=== PATIENT | female | born 1975 | race Hispanic/Latino ===

== ENCOUNTER 2018-08-24 07:56 | Emergency (ER) | payer MEDICAID, SELFPAY ==
[2018-08-24 08:35] LABS: #Basophils 0.1 thou/uL (0.0-0.2); #Eosinphils 0.2 thou/uL (0.0-0.7); #Lymphocytes 1.8 thou/uL (1.20-3.40); #Monocytes 0.4 thou/uL (0.11-0.59); #Neutrophils 3.9 thou/uL (1.40-6.50); %Basophils 0.8 % (0.0-1.0); %Eosinophils 3.2 % (0.0-10.0); %Lymphocytes 28.6 % (21.0-51.0); %Monocytes 5.9 % (0.0-10.0); %Neutrophils 61.5 % (42.0-75.0); Hemoglobin 12.4 g/dL (12.0-16.0); Mean Corpuscular HGB CONC 34.7 g/dL (32.0-36.0); Mean Corpuscular Volume 86.5 fL (78.0-98.0); Mean Platelet Volume 8.3 fL (7.4-10.4); Platelet Count 245 thou/uL (130-400); RBC Distribution Width 15.1 % (11.5-14.5); Red Blood Cell (RBC) Count 4.14 mill/uL (4.20-5.40); White Blood Cell (WBC) Count 6.4 thou/uL (4.8-10.8)
[2018-08-24 08:58] LABS: Bilirubin Negative (Negative); Blood, Urine Large (Negative); Clarity CLEAR (Clear); Glucose, Urine (Dipstick) Negative (Negative); Leukocyte Negative (Negative); Nitrite Negative (Negative); Protein, Urine (Dipstick) Trace mg/dL (Neg-Trace); Specific Gravity, Urine 1.009 (1.002-1.036); Urobilinogen 0.2 mg/dL (0.2-1.0); pH, Urine 5.5 (5.0-9.0)
[2018-08-24 09:00] LABS: Bacteria/HPF None Seen HPF (None Seen); Hyaline Casts/LPF 0-3 HYALINE CAST LPF (0-3 Hyaline); Pathc Cast-AUWi Flag 0.95 (0-2.49); RBC/HPF GREATER THAN 50-TNTC HPF (0-3); Squamous Epithelial 0-3 HPF (0-3); WBC/HPF 0-3 HPF (0-3)
--- NOTE | 2018-08-24 10:42 | ULT ---
PELVIC ULTRASOUND WITH GATES SCALE AND COLOR FLOW AND SPECTRAL DOPPLER: HISTORY: Pelvic pain. FINDINGS: The uterus measures 17.7 x 7.2 x 10.6 cm. A single live intrauterine gestation is seen with measures corresponding to an estimated gestational age of 11 weeks 0 days and KYM at 03/15/2019. The crown-r ump length measures 4.13 cm. The heart rate measures 171 b.p.m. A small subchorionic bleed is seen. The right ovary is not visualized. The left ovary is unremarkable and demonstrates flow. No free fluid is seen. IMPRESSION: 1. Single live intrauterine of 11 weeks estimated gestational age and estimated date of de livery at 03/15/2019. 2. Small subchorionic bleed. POS: [facility]
[2018-08-25 20:47] LABS: Chlamydia by PCR Not Detected (NotDetected); GC by PCR Not Detected (NotDetected)
== END 2018-08-24 10:58 | disposition home or self-care (01) ==
LOC: ERS 07:56
DX: O09.521 Supervision of elderly multigravida, first trimester (principal); O20.0 Threatened abortion; Z3A.11 11 weeks gestation of pregnancy
CPT/HCPCS: 36415; 76856; 81003; 81015; 84702; 85025; 86900; 86901; 87480; 87491; 87510; 87591; 87660; 93976; 99284

== ENCOUNTER 2019-02-07 16:04 | Day surgery (SDC) | payer SELFPAY ==
[2019-02-07 16:48] VITALS: BP 137/63; TEMP 98.3; BMI 41.0
--- NOTE | 2019-02-07 17:26 | PDOC.FPROB ---
FMR OB H&P: HPI - History of Present Illness Chief Complaint: Hematuria History of Present Illness: Pt is a 44 yo @ 35.2 wks by LMP who presents with diet controlled gestational DM and hypothyroidism who presents with hematuria. She has constipation. She had a small bowel movement this morning that was painful. She went to the bathroom around 3pm and had bright red hematuria. She went to the bathroom again and she had light pink urine. She denies any abdominal pain, loss of fluid, contractions, rash, vision changes. She endorses constipation. Primary Care Physician: JENNIFFER- [place] Car FMR OB H&P: Current - Care : 5 Para: 1121 Gestational age: 35.2 weeks by LMP (06/09/18) Due date: 03/16/19 Dating Criteria: LMP - OB Labs Blood type: O RH: positive Antibody Screen: negative HIV: negative RPR: negative HepBsAg: negative Rubella: non-immune Gonorrhea: negative Chlamydia: negative 3 hour GTT: 97, 222, 213, 138 A1c: 5.5% H&H: 12.2/35.3% Platelets: 269 FMR OB H&P: History - Past Medical History PMH: Subclinical Hypothyroidism - OB History OB History: Gestational DM - Surgical History Sx History: 1 @ 37 wks for IUGR - Social History Social History: Lives at home with son and . No alcohol, tobacco, or recreational drugs. - Family History Family History: Mom: DM ( at 57 from complications) FMR OB H&P: Medications - Current Home Medications: Medication Instructions Recorded Confirmed Type Aspirin Chewable 81 mg PO DAILY 02/07/19 02/07/19 History Pnv No.95/Ferrous Fum/Folic AC 1 tab DAILY 02/07/19 02/07/19 History [ Vitamin Tablet] Allergies/Adverse Reactions: Allergies Allergy/AdvReac Type Severity Reaction Status Date / Time No Known Allergies Allergy Verified 02/07/19 16:38 FMR OB H&P: ROS - Review of Systems General: denies: fever/chills Eyes: denies: vision changes ENT: denies: nasal congestion, rhinorrhea, sore throat Cardiovascular: denies: chest pain, edema Respiratory: denies: cough, congestion, shortness of breath Gastrointestinal: reports: constipation. denies: abdominal pain, nausea, vomiting, diarrhea Genitourinary (Female): denies: dysuria, vaginal discharge, vaginal pain, vaginal bleeding, contractions Musculoskeletal: denies: pain, arthritis/arthralgias Neurologic: denies: numbness, weakness, headache Integumentary: denies: itching, rash Endocrine: denies: polydipsia, polyuria FMR OB H&P: Vital Signs - Maternal Vital signs: Vital Signs - First Documented Temp Pulse Resp BP 98.3 F 70 18 137/63 02/07/19 16:21 02/07/19 16:21 02/07/19 16:21 02/07/19 16:21 - Heart Tones Baseline: 150 Variability: moderate Acceleration: present Deceleration: absent Category: category 1 FMR OB H&P: Physical Exam - Physical Exam General: NAD, awake, alert and oriented HEENT: normocephalic and atraumatic, PERRLA, grossly normal hearing, oropharynx clear, good dention Neck: supple, no LAD Chest: non-tender to palpation Heart: RRR, normal S1/S2, no murmurs/rubs/gallops, pulses present, no edema General: CTAB, no respiratory distress, good air movement Abdomen: soft, gravid, non-tender, bowel sound present Musculoskeletal: pulses present Neurological: cranial nerves II through XII intact Skin: no rash Lymphatic: no unusual bruising or bleeding Psychiatric: normal mood and affect FMR OB H&P: A/P - Problem List (1) Hematuria Current Visit: Yes Status: Acute Code(s): R31.9 - HEMATURIA, UNSPECIFIED (2) Constipation Current Visit: Yes Status: Acute Code(s): K59.00 - CONSTIPATION, UNSPECIFIED (3) Gestational diabetes Current Visit: Yes Status: Acute Code(s): O24.419 - GESTATIONAL DIABETES MELLITUS IN , UNSP CONTROL (4) Subclinical hypothyroidism Current Visit: Yes Status: Acute Code(s): E03.9 - HYPOTHYROIDISM, UNSPECIFIED Disposition: Pt is a 44 yo @ 35.2 wks by LMP who presents with diet controlled gestational DM and hypothyroidism who presents with hematuria. 1. Hematuria Started 2 hours ago * Will do a pelvic exam * Straight Cath with UA * CBC * Most likely related to constipation 2. Constipation Will consider starting Ducolax &/or Miralax * Will do rectal to check for hemorrhoids, which is likely cause of bleeding 3. Gestational DM White Classification: A1 * Diet Controlled 4. Subclinical Hypothyroidism TSH checked on 11/21 wnl * No symptoms Discussion: Date/Time: 02/07/19 615 This H&P was discussed with [] and [] who agree with the above documentation and plan.
[2019-02-07] MEDS ORDERED: hydrALAZINE 20 MG/ML VIAL SLOW IVP PRN (17:45)
--- NOTE | 2019-02-07 18:09 | PDOC.EVN ---
Event Note - Event Note Event Note: OBGYN Faculty: I am at bedside. reviewed tests ordered. Audible FM on doppler. [place] reviewed....low amplitute (external) CTX on toco...patent states not painful. CX check pending
--- NOTE | 2019-02-07 18:21 | HP ---
TIME: 1738 hours. LOCATION: Labor and Delivery in LDR 1. The patient of the residents. The patient is at 34 weeks and 5 days gestational age. CHIEF COMPLAINT: Blood during urination. HISTORY OF PRESENT ILLNESS: This is a 44-year-old, G5, P1-1-2-1 with gestational diabetes diet controlled (A1), who complains of "blood in urine." She states that she has had some constipation recently and had a recent bowel movement and then, she noticed that when she went to the restroom, she had some "bright red blood" during urination. Source is unknown though. She does not suspect that it is vaginal. She has good movement and denies a large gush of fluid per vagina. REVIEW OF SYSTEMS: Complete review of systems was checked and is otherwise negative unless specified in the HPI. PAST MEDICAL HISTORY: She has a history of hypothyroidism, but she is not currently on medications. Her last TSH was 0.492, which is normal off medication. PAST SURGICAL HISTORY: She has had a x1. ALLERGIES: NONE. SOCIAL HISTORY: Negative for alcohol, tobacco, and drug use. PHYSICAL EXAMINATION: VITAL SIGNS: She is afebrile and normotensive. Clinically, she is in no acute distress. ABDOMEN: Soft and nontender and there is no evidence of uterine hypertonus. Cervical exam is currently pending. On monitor, heart tones are in the 140s to 150s and they are reactive. On tocodynamometer, there were two contractions about every 10 to 15 minute. ASSESSMENT: This is a 44-year-old, G5, P1-1-2-1 with A1 D1, who is at 34 weeks and 5 days with likely rectal/hemorrhoidal bleed as right red blood with urination is likely not coming from the bladder. PLAN: 1. We will do a cath UA. 2. Vaginal exam to rule out vaginal source of bleeding. 3. The residents have been instructed by me to do a thorough external anal exam to make sure that there are no bleeding hemorrhoids. 4. No evidence of labor or obstetrical issue at this time. Job ID: [id number]
[2019-02-07 18:47] LABS: #Basophils 0.1 thou/uL (0.0-0.2); #Eosinphils 0.3 thou/uL (0.0-0.7); #Monocytes 0.6 thou/uL (0.11-0.59); #Neutrophils 6.2 thou/uL (1.40-6.50); %Basophils 0.7 % (0.0-1.0); %Eosinophils 3.4 % (0.0-10.0); %Lymphocytes 21.6 % (21.0-51.0); %Monocytes 6.1 % (0.0-10.0); %Neutrophils 68.3 % (42.0-75.0); Hemoglobin 12.7 g/dL (12.0-16.0); Mean Corpuscular HGB CONC 34.5 g/dL (32.0-36.0); Mean Corpuscular Volume 92.8 fL (78.0-98.0); Mean Platelet Volume 7.9 fL (7.4-10.4); Platelet Count 217 thou/uL (130-400); RBC Distribution Width 11.9 % (11.5-14.5); Red Blood Cell (RBC) Count 3.96 mill/uL (4.20-5.40); White Blood Cell (WBC) Count 9.1 thou/uL (4.8-10.8)
--- NOTE | 2019-02-07 19:03 | PRG ---
DATE OF SERVICE: 02/07/2019 TIME OF EVALUATION: Roughly 1830. LOCATION: [facility] bed 1. STERILE SPECULUM EXAM: In brief, I was asked by Dr. Ghosh who was performing a speculum exam due to a possible history of bleeding from the vagina, and I arrived 3 minutes after being called. I do not see any gross evidence of rupture. There is no gross evidence of vaginal bleeding. Cervix appears visually closed. There was a small adherent clot less than 1 cm at the external cervical os, so the bleeding may have been supracervical/maybe a small marginal placental separation, but there is no gross evidence of abruption. heart tones are reassuring. This may also explain the uterine low amplitude contractions. I do not feel at this time the patient is at any jeopardy. We will get a blood type as well just to make sure that the patient is Rh positive. I did order the urine on her and that is still pending. Job ID: [id number]
[2019-02-07 19:04] LABS: Bacteria/HPF None Seen HPF (None Seen); Bilirubin Negative (Negative); Blood, Urine Negative (Negative); Clarity Clear (Clear); Glucose, Urine (Dipstick) Normal (Negative); Leukocyte Negative Leu/uL (Negative); Nitrite Negative (Negative); Protein, Urine (Dipstick) Negative (Neg-Trace); RBC/HPF 0-3 HPF (0-3); Squamous Epithelial 0-3 HPF (0-3); Urobilinogen Normal mg/dL (Less than 2); WBC/HPF 0-3 HPF (0-3)
--- NOTE | 2019-02-07 20:41 | PDOC.EVN ---
Event Note - Event Note Event Note: S: Pt monitored on monitoring. Resolution of vaginal bleeding. No contractions. No LOF, vaginal discharge. Endorses good movement. No concerns or complaints. Eager for discharge. O: VSS. BP prior to discharge was 151/68, however pt was lying on cord and cuff. Pt immediately repositioned and repeat BP was 124/60. All BP have been WNL since triage. Vaginal exam: Cervical recheck was 0/thick/high. No return of vaginal bleeding. Initial check 0/thick/high. Speculum exam demonstrated scant cervical bleeding. Rectal exam: External, nonbleeding hemorrhoids. A/P: Pt is a 44 yo @ 35.2 wks by LMP who presents with diet controlled gestational DM and hypothyroidism who presents with vaginal bleeding 1. Vaginal bleeding, resolved - Cervical check x2 >2hours apart of 0/thick/high - Initial speculum exam demonstrated small cervical bleeding, repeat cervical check demonstrated no bleeding - Bleeding likely 2/2 cervical softening - Reactive strip, no contractions - CBC WNL, Straight cath UA clean - Not in active labor, reassuring FTH, stable for discharge. Return precautions given. F/u with PCP this week for routine care. 2. Constipation with external hemorrhoids - seen on exam - recommended PrepH as outpatient 3. Gestational DM White Classification: A1 - Diet Controlled 4. Subclinical Hypothyroidism - TSH checked on 11/21 wnl - No symptoms Dispo: Pt not in active labor. Discharge pt with labor return precautions. F/u with PCP this week for routine care.
== END 2019-02-07 20:38 | disposition home or self-care (01) ==
LOC: L&D/OP 16:04
PROVIDERS: ATTEND Student in an Organized Health Care Education/Training Program
DX: O46.93 Antepartum hemorrhage, unspecified, third trimester (principal); O99.613 Diseases of the digestive system complicating pregnancy, third trimester; K59.00 Constipation, unspecified; K64.4 Residual hemorrhoidal skin tags; O24.410 Gestational diabetes mellitus in pregnancy, diet controlled; O99.283 Endocrine, nutritional and metabolic diseases complicating pregnancy, third trimester; E03.9 Hypothyroidism, unspecified; Z79.82 Long term (current) use of aspirin; Z3A.34 34 weeks gestation of pregnancy
CPT/HCPCS: 36415; 81003; 85025; 86900; 86901

== ENCOUNTER 2019-02-08 03:16 | Inpatient (IN) | payer MEDICAID, OTHER, SELFPAY ==
--- NOTE | 2019-02-08 04:21 | PDOC.FPROB ---
FMR OB H&P: HPI - History of Present Illness Chief Complaint: Vaginal Bleeding History of Present Illness: 44yo @ 35.3 by LMP with Gestational DM - diet controlled who presents for vaginal bleeding. Was seen last night for similar sxs. At that time cervical was closed, high and thick. Had scant vaginal bleeding from cervical OS. Bleeding resolved. Contractions resolved. Reactive strip. No LOF, good movement. Was given return precautions and discharged. At 0100 pt awoke with sensation to urinate, passed 1 large clot, packed underwear with toilet paper and went back to sleep. At 0300 awoke again to find paper soaked with blood, urinated and passed multiple large clots and increased bleeding. Has associated thobbing pain with bleeding, starting at back and radiating to pelvis. Denies LOF or change in vaginal discharge. Endorses good movement. No SOB, CP, fever/chills, n/v. Contractions q5-7mins and vaginal bleeding with each contraction. - Care : 5 Para: 1121 Gestational age: 35.3 weeks by LMP (06/09/18) Due date: 03/16/19 Dating Criteria: LMP - OB Labs Blood type: O RH: positive Antibody Screen: negative HIV: negative RPR: negative HepBsAg: negative Rubella: non-immune Gonorrhea: negative Chlamydia: negative 3 hour GTT: 97, 222, 213, 138 A1c: 5.5% H&H: 12.2/35.3% Platelets: 269 Primary Care Physician: JENNIFFER Car FMR OB H&P: History - Past Medical History PMH: Subclinical Hypothyroidism - OB History OB History: Gestational DM - diet controlled. Previous deliveries. - Surgical History Sx History: 1 @ 37 wks for IUGR - Social History Social History: Lives at home with son and . No alcohol, tobacco, or recreational drugs. - Family History Family History: Mom: DM ( at 57 from complications) FMR OB H&P: Medications - Current Home Medications: Medication Instructions Recorded Confirmed Type Aspirin Chewable [Aspirin Chewable 81 mg PO DAILY 02/07/19 02/07/19 History Tablet] Pnv No.95/Ferrous Fum/Folic AC 1 tab DAILY 02/07/19 02/07/19 History [ Vitamin Tablet] Hydroxyprogesterone [Zenobia] 250 mg IM Q7D 02/08/19 02/08/19 History Allergies/Adverse Reactions: Allergies Allergy/AdvReac Type Severity Reaction Status Date / Time No Known Allergies Allergy Verified 02/08/19 04:26 FMR OB H&P: ROS - Review of Systems General: denies: fever/chills, weight/appetite/sleep changes, night sweats Eyes: denies: vision changes, double vision, scotomas ENT: denies: nasal congestion, rhinorrhea, frequent nose bleed, sore throat Cardiovascular: denies: chest pain, palpitation, edema Respiratory: denies: cough, congestion, shortness of breath Gastrointestinal: reports: cramping, constipation (chronic). denies: abdominal pain, nausea, vomiting, diarrhea Genitourinary (Female): reports: vaginal pain, vaginal bleeding, contractions. denies: incontinence, dysuria, hematuria, vaginal pressure Musculoskeletal: denies: pain, stiffness, tenderness Neurologic: denies: numbness, syncope, seizures Integumentary: denies: rash, lesions FMR OB H&P: Vital Signs - Maternal Vital signs: BP 127/57, HR 67, 98% on RA - Heart Tones Baseline: 140 Variability: moderate Acceleration: present Deceleration: absent Category: category 1 Seth Ward contractions every: 5-6 minutes FMR OB H&P: Physical Exam - Physical Exam General: NAD, awake, alert and oriented HEENT: EOMI, MMM Neck: supple, trachea midline Heart: RRR, normal S1/S2, no murmurs/rubs/gallops, pulses present, no edema General: CTAB, no respiratory distress, good air movement, no rales/rhonchi, no wheezing Abdomen: soft, gravid, non-tender, bowel sound present Neurological: no tremor, no focal deficit Lymphatic: no unusual bruising or bleeding, no purpura Psychiatric: intact recent and remote memory, good judgement and insight, normal mood and affect - Pelvic Exam Vulva: normal hair distribution Deviation from normal: bloody vaginal discharge SVE: 0/thick/high Presentation: oblique Estimated Weight: other FMR OB H&P: A/P - Problem List (1) Vaginal bleeding during Current Visit: Yes Status: Acute Code(s): O46.90 - ANTEPARTUM HEMORRHAGE, UNSPECIFIED, UNSPECIFIED TRIMESTER (2) Third trimester at less than 36 weeks Current Visit: Yes Status: Acute Code(s): Z34.93 - ENCNTR FOR SUPRVSN OF NORMAL PREG, UNSP, THIRD TRIMESTER (3) Gestational diabetes Current Visit: Yes Status: Acute Code(s): O24.419 - GESTATIONAL DIABETES MELLITUS IN , UNSP CONTROL Qualifiers: Gestational diabetes mellitus control: diet-controlled Trimester: third trimester Qualified Code(s): O24.410 - Gestational diabetes mellitus in , diet controlled Disposition: 44yo @ 35.3 by LMP with Gestational DM - diet controlled who presents for vaginal bleeding. #Vaginal bleeding during 3rd trimester - 35.3wks by LMP - suspected partial placental abruption - 2nd presentation for sxs within 24 hours - Cervical check remains 0/thick/high, similar to previous, after confirming placental location with beside US - Will give Steroids for lung protection, anticipate repeat C/S in 4 hours from dose - History of vertical incision, will plan for low transverse for improved wound healing - Will monitor closely on monitoring, currently cat 1 strip, no decels, accels, moderate variability, contractions q5-6min - Will obtain BPP and US for EFW and placental location - Type and cross for 2 units - Notified NICU of impeding deliver of - Admit to L&D #Gestational DM - Diet controlled, will monitor Code: Full Diet: NPO IVF: LR @125cc/hr VTE: SCDs PCP: DARLING Car Dispo: Admit to L&D. Administer IM steroids, monitor closely. Anticipate repeat c/s in 4 hours after steroids given. Discussion: Date/Time: 02/08/19 3836 This H&P was discussed with Dr. Dye who agree with the above documentation and plan.
[2019-02-08] MEDS ORDERED: Promethazine HCl 25 MG/ML VIAL IM PRN ×2 (04:32→09:39)
[2019-02-08] MEDS ORDERED: Ondansetron PF 4 MG/2 ML Vial IVP PRN ×2 (04:32→09:39)
[2019-02-08] MEDS ORDERED: hydrALAZINE 20 MG/ML VIAL SLOW IVP PRN ×2 (04:32→12:55)
[2019-02-08] MEDS ORDERED: Acetaminophen 500 MG TAB PO PRN (04:32)
--- NOTE | 2019-02-08 04:46 | PDOC.EVN ---
Event Note - Event Note Event Note: OBGYN Faculty interim H&P Patient seen at 0430 in Triage A See my dictation CC: persistent Vag Bleed and clot passage ED weeks 5 days HPI: Patient was seen yesterday in L&D fort same and released as she was stable and no further vag bleed. Past Surgical: CS x1 (vertical skin scar) Physical: No active VB Patient clinically stable monitors: NST reactive, ut irritability Assessment and Plan: AMA...prior CS x1. As EGA is 35 weeks and 3 days and NST reactive with no current active VB, we will order Celestone X1...and wait 4 hrs for some benefit, then proceed to repeat CS. Patient does prefer a CS after my TOLAC discussion at bedside. I feel this is reasonable due to the vag bleed/suspected marginal abruption which may make labor not tolerable. We will notify NICU Sono for EFU (bedside sono+ cephalic without previa). T&C X 2 Although she has a vertical skin incision, we will proceed with a low transverse incision on the skin for better postop healing
[2019-02-08] MEDS: Lactated Ringer's 1,000 ML IV SCH ×4 (04:49→15:33)
[2019-02-08] MEDS ORDERED: Betamet Acet/Betamet Na Ph 30 MG/5 ML VIAL IM SCH (05:00)
[2019-02-08] MEDS ORDERED: Bicitra 30 ML UDCUP PO SCH (05:00)
[2019-02-08] MEDS ORDERED: Azithromycin 500 MG in Sodium Chloride 0.9% 250 ML 250 ML IVPB SCH (05:00)
[2019-02-08] MEDS ORDERED: CEFAZOLIN 2 GM in Premix Bag 1 BAG IVPB SCH (05:00)
--- NOTE | 2019-02-08 05:10 | HP ---
LOCATION: Labor and Delivery. Gestational age is roughly 35 weeks and 3 days. This is a patient of the clinic. REASON FOR EVALUATION/CHIEF COMPLAINT: Vaginal bleeding. HISTORY OF PRESENT ILLNESS: In brief, this is a patient that I had evaluated along with the residents yesterday for an episode of vaginal bleeding. She had a workup with a negative blood clot noted at the cervical os on her 1st evaluation yesterday and she was thought to maybe have a small marginal separation, but as the baby looked well and there was no further bleeding, we sent her home. She now returns again with another episode of going to the restroom and passing clots. There was no active bleeding now, and she has had no trauma or recent sexual activity. But because of the persistent bleeding and passing of clots at home, she came in. Again, she is a 44-year-old multigravida with a previous (a vertical skin incision). Please see the full H and P by the Resident Team. I have seen and evaluated the patient at bedside. ASSESSMENT: This is a 44-year-old multigravida, with a previous who is at 35 weeks and 3 days, who was just seen less than 24 hours ago, but presents now again with persistent vaginal bleeding. There is no evidence of previa on limited bedside ultrasound. As this is her 2nd presentation and she is having some low amplitude contractions as well, I believe she is having a small placental abruption. She is nonhypertensive and does not use drugs. There has been no recent trauma. Her Rh type is positive. PLAN: 1. Because of the placental issue, I have recommended delivery. 2. She had a previous x1 and although she has been educated on a trial of labor after , she requested a repeat . 3. I have ordered Celestone as she is under 36 weeks and 6 days. 4. I have asked for the NICU team to come see her. 5. I have ordered an ultrasound for estimated weight. 6. Bedside ultrasound confirms baby is in a vertex presentation and no previa. 7. I will do a Type and Cross. 8. Rh positive. 9. I will wait about 4 hours after the steroid and we will proceed with a repeat this morning. Although, she has a vertical skin incision, it is fine to do a low transverse skin incision as it has improved healing and less pain postop. 10. I have advised the patient that a repeat is best even though it is under her due date. Although, she is late , the benefits of delivery outweigh the risk of continued with active bleeding and suspected abruption. Currently, we are not moving back to the OR as the stat because the baby is still reassuring, her vitals are stable, her abdomen is soft, and there is no active bleeding at this time. If her bleeding progresses or activates or continues to pass clots, we may need to do a before the 4 hours of steroid benefit for maternal- protection. We will watch this bleeding closely. Job ID: [id number]
[2019-02-08 05:13] LABS: Hemoglobin 12.8 g/dL (12.0-16.0); Mean Corpuscular HGB CONC 34.7 g/dL (32.0-36.0); Mean Corpuscular Volume 92.2 fL (78.0-98.0); Mean Platelet Volume 7.9 fL (7.4-10.4); Platelet Count 220 thou/uL (130-400); White Blood Cell (WBC) Count 8.1 thou/uL (4.8-10.8)
[2019-02-08 05:54] LABS: HBSAg Index 0.44 S/CO (0-0.99); Hep B Surf Ag Non-Reactive S/CO (NonReactive)
[2019-02-08 06:17] LABS: Syphilis Antibody Nonreactive (Nonreactive); Syphilis Antibody Index 0.03 S/CO (<1.00 Non-Reactive)
[2019-02-08 06:21] VITALS: BMI 44.9
[2019-02-08 06:31] LABS: ALT (SGPT) 10 U/L (8-55); AST (SGOT) 14 U/L (5-34); Albumin 3.6 g/dL (3.5-5.0); Alkaline Phosphatase 92 U/L (40-110); Anion Gap 15 mmol/L (10-20); BUN (Urea Nitrogen) 10 mg/dL (7.0-18.7); Bilirubin, Total 0.5 mg/dL (0.2-1.2); Calc. Creatinine Clearance 198 mL/min (70-130); Calcium 9.5 mg/dL (7.8-10.44); Carbon Dioxide 20 mmol/L (22-29); Chloride 108 mmol/L (98-107); Estimated GFR-MDRD Greater than 90; Globulin 2.6 g/dL (2.4-3.5); Glucose 91 mg/dL (70-105); Potassium 4.3 mmol/L (3.5-5.1); Protein, Total 6.2 g/dL (6.0-8.3); Sodium 139 mmol/L (136-145)
[2019-02-08 06:58] LABS: Prothrombin Time 13.5 SEC (12.0-14.7)
--- NOTE | 2019-02-08 08:58 | ULT ---
PRELIMINARY REPORT/[facility]/EMERGENCY AFTER HOURS PROCEDURE: Addendum created by Bin Levy MD on 02/08/2019 6:48 AM Central Time ([place] & [place]) The above repo rt was read and discussed with the patient's nurse who is to inform the attending physician of the ab ove-described findings. 02/08/2019 6:47 AM RESP THERAPIST. Nurse RN Radha Huynh As always, we are available for consultation at all times. Initial Report created on 02/08/2019 6:44 AM Central Time ([place] & [place]) PROCEDURE INFORMATION: Exam: US After First Trimester, Transabdominal Exam date and time: 02/08/2019 4:59 AM Clinical history: 44 years old, female; Lmp or gestational age (in weeks): 35w1d; Antepartum complica tions; complicated by abdominal or pelvic pain; Lower; Third trimester; ; Prior surgery; Surgery date: 6+ months; Surgery type: Previous c sec; Patient HX: Heavy vaginal bleeding, pelvic pain TECHNIQUE: Imaging protocol: Real-time transabdominal obstetrical ultrasound of the maternal pelvis and a second or third trimester with image documentation. COMPARISON: No relevant prior studies available. FINDINGS: GESTATION: Gestation: Obliquely oriented fetus. Heart rate: heart rate: 127 beats per minute. Presentation: Obliquely oriented Placenta: Placenta is anterior install and repair technician suggested possible mild abruption/marginal bleed . Recommend dedicated ultrasound with physician. Amniotic fluid: Amniotic fluid index 5.1 cm. Oligohydramnios. Limited anatomic survey BIOMETRY: Estimated gestational age: Single live intrauterine gestation with the estimated gestational age of a pproximately 34 weeks 6 days by last menstrual period and 35 weeks 1 day by ultrasound. Estimated due date: Estimated due date 03-16-19 by last menstrual period and 03-14-19 by ultrasound Estimated weight: Estimated weight 2633 g. 5 lbs. 13 oz. 58th percentile. Biparietal diameter: BPD: 8.5 cm. 34 weeks 2 days. Head circumference: HC: 32.1 cm. 36 weeks 1 day. Abdominal circumference: AC: 31.9 cm. 35 weeks 5 days. Femur length: FL: 6.7 cm. 34 weeks 2 days. tone: 2/2 Breathin/2 Gross body movements: 2/2 Qualitative amniotic fluid: 0/2 MATERNAL: Cervix: Cervical length of approximately 3.9 cm. No funneling. Intraperitoneal: Biophysical profile: 6/8. IMPRESSION: 1. Single live intrauterine gestation with the estimated gestational age of approximately 34 weeks 6 days by last menstrual period and 35 weeks 1 day by ultrasound. 2. heart rate: 127 beats per minute. 3. Amniotic fluid index 5.1 cm. Oligohydramnios. 4. Biophysical profile: 6/8. 5. install and repair technician suggested possible mild abruption/marginal bleed. Recommend dedicated ultras ound with physician if indicated. Not clearly demonstrated on the submitted images. Thank you for allowing us to participate in the care of your patient. Dictated and Authenticated by: Bin Levy MD 02/08/2019 6:44 AM Central Time ([place] & [place]) FINAL REPORT LIMITED OB ULTRASOUND NON-STRESS BIOPHYSICAL PROFILE: HISTORY: First trimester . Evaluate gestational weight and placental location. Pelvic pain and bleedi ng. FINDINGS: Cervix appears to be approximately 4-5 cm. heart tones at 127 beats/minute. Anterior placenta. Computer Numerical Control Grinder suggests possible marginal bleeding/mild abruption. position is oblique. Amniotic fluid index is 5.1 cm, oligohydramnios. Biometry: Please refer to the initial report by Ursula. Average age by sonography is 35 weeks and 1 day. Estimated weight is 2,633 gm, +/- 390 gm. NON-STRESS BIOPHYSICAL PROFILE: tone: 2 breathin movement: 2 Amniotic fluid: 0 Total Score: 6/8 IMPRESSION: This report is in agreement with the preliminary report by Ursula. 1. Single intrauterine gestation with heart tones. 2. Oligohydramnios. 3. Non-stress biophysical profile is 6/8. POS: [facility]
[2019-02-08] MEDS ORDERED: PHENYLEPHRINE-NS 100 MCG/ML 10 ML SYRINGE ONE (09:11)
[2019-02-08] MEDS ORDERED: MORPHINE 5 MG/10 ML PF VIAL ONE (09:11)
[2019-02-08] MEDS ORDERED: Oxytocin 10 UNITS/ML VIAL ONE ×2 (09:11→10:09)
[2019-02-08] MEDS ORDERED: Ondansetron PF 4 MG/2 ML Vial ONE (09:11)
[2019-02-08] MEDS ORDERED: Dexamethasone 4 mg/ml Vial ONE (09:11)
[2019-02-08] MEDS ORDERED: ePHEDrine/0.9% NaCl/PF SYRINGE 50 mg/10 ml ONE (09:11)
--- NOTE | 2019-02-08 09:24 | PDOC.OPDEL ---
OB Operative/Delivery Note Delivery Dr/Surgeon: Dr. Car with Dr. Villanueva attending Pre-Delivery Diagnosis: scheduled section Procedure/Post Delivery Dx: repeat low transverse CS Weeks gestation: 34 (34w6d) Anesthesia: spinal - Additional Findings/Plan Placenta delivered: spontaneous findings: low transverse hysterotomy without extension Estimated blood loss: 800mL Compilations/Other Findings: Preoperative Diagnosis: 1) intrauterine 2)Previous 3)Suspected placental abruption 4)h/o labor and delivery Postoperative Diagnosis: 1) intrauterine , delivered 2)Previous 3)Placental abruption 4)h/o labor and delivery Anesthesia: spinal Indications: The patient is a 44 year old female at 34.6 weeks gestation who presents for a repeat for suspected placental abruption. Procedure in Detail: After risks, benefits, and alternatives were explained to the patient, she gave informed consent. Pre-operative antibiotics included Cefazolin 2 gram IV. The patient was taken to the operating room and spinal anesthesia was initiated. She was placed in the supine position with a left tilt and prepped and draped in usual sterile fashion. A Pfannenstiel incision was made with a scalpel and carried down to the level of the fascia which was sharply nicked. The fascial cut was extended bilaterally with Blandon scissors. The inferior and superior edges of the cut fascial edges were elevated with Otis clamps and the underlying rectus muscles were sharply and bluntly dissected free. The recti were divided digitally and retracted manually. The peritoneum was entered bluntly and retracted manually. Santiago O retractor was placed. Bladder flap was created with Metzenbaum scissors. A low transverse score was made with the scalpel and the uterus was entered in the midline bluntly. Bloody fluid was seen. The hysterotomy was extended manually in a cephalocaudal fashion. The infant was noted to be vertex and was easily delivered by fundal pressure. Nuchal cord x2, reduced after delivery. Mouth and nares were bulb suctioned. Cord clamped and cut and grossly normal male was handed to waiting nurse. Cord gas and cord blood was obtained. Placenta was spontaneously extracted, found to have about 10% area of abruption with 3 vessel cord and sent for pathology. The endometrium was curetted with a dry lap. The uterus was closed with a running locking #1-monocryl suture. Following this hemostasis was noted. The abdomen was irrigated with saline and suctioned free of clots. The Santiago O retractor was removed and the hysterotomy was again noted to be hemostatic. The rectus were examined and found to have 2 areas of bleeding at the superior edges. Bovie was attempted, but was unable to control the bleeding, so 2-0 chromic was used with figure of eight sutures in both locations with good hemostasis following. The fascia was closed with a running non-locking 0-PDS suture. The subcutaneous tissue was irrigated and there were no bleeders. The skin was closed with 4-0 monocryl subcuticular sutures and a pressure dressing was placed. All counts were correct. The patient tolerated the procedure well and was taken to the recovery room in stable condition. Delivery Time: 951 on 02/08/19 Estimated Blood Loss: 800 ml Complications: None Specimens: Cord blood sent to lab for blood type, cord gas sent, placenta sent for pathology Findings: Grossly normal male infant went to NICU. Placenta with about 10% area of abruption with 3 vessel cord sent for pathology Drains: Peoples to gravity draining clear urine Post delivery plan: routine recovery Addendum - Attending - Attending Attestation Date/Time: 02/10/19 6962 I personally was present and scrubbed for the c- section described above. i agree with the documentation.
[2019-02-08] MEDS ORDERED: L&D-Morphine 4 MG/ML VIAL SLOW IVP PRN (09:38)
[2019-02-08] MEDS ORDERED: HYDROmorphone 2 MG/ML VIAL SLOW IVP PRN (09:38)
[2019-02-08] MEDS ORDERED: Ondansetron HCl/PF 4 MG/2 ML Vial IVP PRN (09:38)
[2019-02-08] MEDS ORDERED: Meperidine HCl/PF 25 MG/ML VIAL SLOW IVP PRN (09:38)
[2019-02-08] MEDS ORDERED: Ketorolac Tromethamine 30 MG/ML VIAL IVP PRN (09:39)
[2019-02-08] MEDS ORDERED: Promethazine HCl 25 MG SUPP PR PRN (09:39)
[2019-02-08] MEDS ORDERED: diphenhydrAMINE 50 MG/ML VIAL IVP PRN (09:39)
[2019-02-08] MEDS ORDERED: Naloxone HCl 0.4 mg/ml Vial IVP PRN ×2 (09:39)
[2019-02-08] MEDS ORDERED: Naloxone HCl 0.4 mg/ml Vial IV PRN (09:39)
[2019-02-08] MEDS ORDERED: Ketorolac Tromethamine 30 MG/ML VIAL IVP SCH (09:45)
[2019-02-08] MEDS ORDERED: Communication Order-Pharmacy FS SCH (09:45)
[2019-02-08 12:03] LABS: Actual Bicarbonate (HCO3a) 22.9 mEq/L (22-28); Analyzer IN Cardio OR; Base Excess (BEa) -3.7 mEq/L (-2.0 to +3.0)
[2019-02-08] MEDS ORDERED: Adacel (T-DAP) 0.5 ML SYRINGE IM ONE (12:55)
[2019-02-08] MEDS ORDERED: Simethicone Chewable 80 MG TAB PO PRN (12:55)
[2019-02-08] MEDS ORDERED: Lanolin Ointment 7 GM TUBE TOP PRN (12:55)
[2019-02-08] MEDS: Ferrous Sulfate 325 MG TAB PO SCH (18:32)
[2019-02-08] MEDS ORDERED: Sodium Chloride 0.9% 10 ML ONE (20:05)
[2019-02-08] MEDS: Docusate Calcium (SURFAK) 240 MG CAP PO SCH (20:12)
[2019-02-08] MEDS ORDERED: HYDROcodone/Acetaminophen 5/325 mg Tablet PO PRN ×2 (21:45)
[2019-02-09 06:18] LABS: Hemoglobin 9.5 g/dL (12.0-16.0); Mean Corpuscular Hemoglobin 31.8 pg (27.0-31.0); Mean Corpuscular Volume 93.4 fL (78.0-98.0); Mean Platelet Volume 8.1 fL (7.4-10.4); Platelet Count 192 thou/uL (130-400); RBC Distribution Width 12.1 % (11.5-14.5); White Blood Cell (WBC) Count 10.3 thou/uL (4.8-10.8)
[2019-02-09] MEDS ORDERED: Measles/Mumps/Rubella 10 MCG/0.5 ML VIAL SC ONE (07:08)
--- NOTE | 2019-02-09 07:08 | PDOC.OBPPN ---
FMR OB PN: Subj - Interval History Day: 1 44 y/o ->1222 @ 34.6 WGA delivered via rLTCS indicated for placental abruption on 02/08/19. Pt is tolerating PO and has been up ambulating to the bathroom. Pain well controlled. Pumping as she wants to breast feed. Minimal lochia. Denies N/V, chest pain, palpitations, H/A. FMR OB PN: Obj - Maternal Vital signs: BP: 90/53 HR: 53 RR: 20 Tmax: 98.1 Pox: 94% on RA Wt: 107kg - Urine output I&O: 02/08/19 02/09/19 02/10/19 06:59 06:59 06:59 Intake Total 4020 Output Total 3593 Balance 427 FMR OB PN: Exam - Physical Exam General: NAD, awake, alert and oriented HEENT: MMM, conjunctiva clear, grossly normal vision, grossly normal hearing Neck: supple, no LAD Heart: RRR, normal S1/S2, no murmurs/rubs/gallops, pulses present, no edema General: CTAB, no respiratory distress, no wheezing Abdomen: soft, fundus(cm) (firm 2cm below umbilicus) Musculoskeletal: pulses present Neurological: no clonus, no focal deficit Skin: good tugor, capillary refill <2 seconds : incision healing well, no erythema, no edema, no drainage, appropriately tender Psychiatric: intact recent and remote memory, good judgement and insight FMR OB PN: Data - Labs Lab results: Laboratory Results - last 24 hr 02/08/19 02/09/19 10:30 05:47 WBC 10.3 RBC 3.00 L Hgb 9.5 L Hct 28.0 L MCV 93.4 MCH 31.8 H MCHC 34.0 RDW 12.1 Plt Count 192 MPV 8.1 Bicarbonate Actual 22.9 ABG Base Excess -3.7 L Cord ABG pH 7.304 Cord ABG PCO2 (Yashira) 47.2 FMR OB PN: A/P - Problem List (1) delivery Current Visit: Yes Status: Acute Code(s): O60.10X0 - LABOR W DELIVERY, UNSP TRIMESTER, UNSP Assessment and Plan: Continue routine PP care -PNV -Encourage breast feeding -[place], ibuprofen for pain -Encourage ambulation (2) S/P section Current Visit: Yes Status: Acute Code(s): Z98.891 - HISTORY OF UTERINE SCAR FROM PREVIOUS SURGERY Assessment and Plan: Incision intact -Continue norco and ibuprofen for pain control (3) Placental abruption Current Visit: Yes Status: Acute Code(s): O45.90 - PREMATURE SEPARATION OF PLACENTA, UNSP, UNSP TRIMESTER Assessment and Plan: Pt had increased blood loss 2/2 placental abruption with Hb drop from 12.8->9.5 -Continue iron -f/u on placenta pathology (4) Anemia Current Visit: Yes Status: Acute Code(s): D64.9 - ANEMIA, UNSPECIFIED Assessment and Plan: Hb dropped from 12.8->9.5 post-op -Iron (5) Rubella nonimmune status, delivered, current hospitalization Current Visit: Yes Status: Acute Code(s): O99.89 - OTH DISEASES AND CONDITIONS COMPL PREG/CHLDBRTH; Z28.3 - UNDERIMMUNIZATION STATUS Assessment and Plan: MMR vaccine to be given prior to d/c Disposition: Continue to monitor on , anticipate d/c home tomorrow Discussion: Date/Time: 02/09/19 0706 This H&P was discussed with Dr. Villanueva who agrees with the above documentation and plan. Signature: Keara Car MD, PGY-3
[2019-02-09] MEDS: Ferrous Sulfate 325 MG TAB PO SCH ×2 (08:55→16:50)
[2019-02-09] MEDS: Prenatal Vitamin 1 TAB PO SCH (08:55)
[2019-02-09] MEDS: Docusate Calcium (SURFAK) 240 MG CAP PO SCH ×2 (08:55→21:39)
[2019-02-09] MEDS: Ibuprofen 800 MG TAB PO SCH ×2 (13:43→21:39)
[2019-02-09] MEDS ORDERED: Milk Of Magnesia 30 ML UDCUP PO PRN (13:50)
[2019-02-10] MEDS: Ibuprofen 800 MG TAB PO SCH ×2 (04:54→13:41)
[2019-02-10 07:26] VITALS: BP 112/58; TEMP 98
--- NOTE | 2019-02-10 07:28 | PDOC.OBPPN ---
FMR OB PN: Subj - Interval History Day: 2 44 y/o ->1222 @ 34.6 WGA delivered via rLTCS indicated for placental abruption on 02/08/19. Pt is tolerating PO and has been up ambulating to the bathroom and to the NICU. Pain well controlled. Pumping as she wants to breast feed. Minimal lochia. Denies N/V, chest pain, palpitations, H/A. FMR OB PN: Obj - Maternal Vital signs: BP: 80/44 HR: 58 RR: 16 Tmax: 97.7 Pox: 98% on RA Wt: 107.9kg - Urine output I&O: 02/09/19 02/10/19 02/11/19 06:59 06:59 06:59 Intake Total 4020 Output Total 3593 500 Balance 427 -500 FMR OB PN: Exam - Physical Exam General: NAD, awake, alert and oriented HEENT: MMM, conjunctiva clear, grossly normal vision, grossly normal hearing Neck: supple, no LAD Heart: RRR, normal S1/S2, no murmurs/rubs/gallops, pulses present, no edema General: CTAB, no respiratory distress, good air movement, no rales/rhonchi, no wheezing Abdomen: soft, fundus(cm) (firm 2cm below umbilicus) Musculoskeletal: pulses present, FROM in all four extremities Neurological: no clonus, no focal deficit Skin: good tugor, capillary refill <2 seconds : incision healing well, no erythema, no edema, no drainage, appropriately tender Psychiatric: intact recent and remote memory, good judgement and insight FMR OB PN: A/P - Problem List (1) delivery Current Visit: Yes Status: Acute Code(s): O60.10X0 - LABOR W DELIVERY, UNSP TRIMESTER, UNSP Assessment and Plan: Continue routine PP care -PNV -Encourage pumping while in NICU -ibuprofen for pain -Encourage ambulation (2) S/P section Current Visit: Yes Status: Acute Code(s): Z98.891 - HISTORY OF UTERINE SCAR FROM PREVIOUS SURGERY Assessment and Plan: Incision healing well with dermabond in place. -Ibuprofen for pain control (3) Placental abruption Current Visit: Yes Status: Acute Code(s): O45.90 - PREMATURE SEPARATION OF PLACENTA, UNSP, UNSP TRIMESTER Assessment and Plan: Pt had increased blood loss 2/2 placental abruption with Hb drop from 12.8->9.5 -Continue iron -f/u on placenta pathology (4) Anemia Current Visit: Yes Status: Acute Code(s): D64.9 - ANEMIA, UNSPECIFIED Assessment and Plan: Hb drop to 9.5, continue iron. Pt asymptomatic (5) Rubella nonimmune status, delivered, current hospitalization Current Visit: Yes Status: Acute Code(s): O99.89 - OTH DISEASES AND CONDITIONS COMPL PREG/CHLDBRTH; Z28.3 - UNDERIMMUNIZATION STATUS Assessment and Plan: MMR vaccine prior to d/c Disposition: d/c patient home today with f/u at [facility] in 2 weeks Discussion: Date/Time: 02/10/19 0726 This H&P was discussed with Dr. Eldridge who agrees with the above documentation and plan. Signature: Keara Car MD, PGY-3
[2019-02-10] MEDS: Ferrous Sulfate 325 MG TAB PO SCH ×2 (09:23→18:12)
[2019-02-10] MEDS: Prenatal Vitamin 1 TAB PO SCH (09:24)
[2019-02-10] MEDS: Docusate Calcium (SURFAK) 240 MG CAP PO SCH (09:24)
== END 2019-02-10 18:18 | disposition home or self-care (01) | DRG 786 ==
LOC: L&D/OP 03:16 → L&D 04:57 → 3SW 13:43
PROVIDERS: ADMIT Obstetrics & Gynecology; ATTEND Obstetrics & Gynecology
PROC: 10D00Z1 Extraction of Products of Conception, Low, Open Approach (ICD-10-PCS; principal; 2019-02-08)
DX: O45.93 Premature separation of placenta, unspecified, third trimester (principal); O60.14X0 Preterm labor third trimester with preterm delivery third trimester, not applicable or unspecified; O10.92 Unspecified pre-existing hypertension complicating childbirth; O24.420 Gestational diabetes mellitus in childbirth, diet controlled; O99.214 Obesity complicating childbirth; O34.211 Maternal care for low transverse scar from previous cesarean delivery; E66.01 Morbid (severe) obesity due to excess calories; O99.284 Endocrine, nutritional and metabolic diseases complicating childbirth; E02 Subclinical iodine-deficiency hypothyroidism; O90.81 Anemia of the puerperium; D64.9 Anemia, unspecified; Z3A.34 34 weeks gestation of pregnancy; Z37.0 Single live birth
CPT/HCPCS: 36415; 51702; 76815; 76819; 80053; 82805; 85027; 85384; 85610; 85730; 86780; 86850; 86900; 86901; 87340; 88307; 90707; 99285; J0690; J0702; J1100; J1885; J2274; J2405; J2590

== ENCOUNTER 2020-11-15 10:20 | Outpatient (CLI) | payer OTHER | END 2020-11-15 10:21 | disposition home or self-care (01) | LOC: BICRAD 10:20 | PROVIDERS: ATTEND Family Medicine | DX: Z87.01 Personal history of pneumonia (recurrent) (principal) | CPT/HCPCS: 71046 ==

== ENCOUNTER 2021-03-24 11:14 | Emergency (ER) | payer SELFPAY ==
[2021-03-24 11:50] LABS: #Basophils 0.1 thou/uL (0.0-0.2); #Eosinphils 0.4 thou/uL (0.0-0.7); #Lymphocytes 2.9 thou/uL (1.20-3.40); #Monocytes 0.5 thou/uL (0.11-0.59); #Neutrophils 4.3 thou/uL (1.40-6.50); %Basophils 0.9 % (0.0-1.0); %Eosinophils 4.6 % (0.0-10.0); %Lymphocytes 35.4 % (21.0-51.0); %Monocytes 6.1 % (0.0-10.0); Hemoglobin 13.3 g/dL (12.0-16.0); Mean Corpuscular HGB CONC 34.3 g/dL (32.0-36.0); Mean Corpuscular Hemoglobin 32.2 pg (27.0-31.0); Mean Corpuscular Volume 93.6 fL (78.0-98.0); Mean Platelet Volume 7.3 fL (7.4-10.4); Platelet Count 283 thou/uL (130-400); RBC Distribution Width 11.8 % (11.5-14.5); Red Blood Cell (RBC) Count 4.13 mill/uL (4.20-5.40); White Blood Cell (WBC) Count 8.1 thou/uL (4.8-10.8)
[2021-03-24] MEDS ORDERED: Morphine 4 MG/ML VIAL ONE (12:01)
[2021-03-24 12:11] LABS: ALT (SGPT) 23 U/L (8-55); AST (SGOT) 16 U/L (5-34); Albumin 4.4 g/dL (3.5-5.0); Alkaline Phosphatase 86 U/L (40-110); Anion Gap 13 mmol/L (10-20); BUN (Urea Nitrogen) 16 mg/dL (7.0-18.7); Bilirubin, Total 0.4 mg/dL (0.2-1.2); Calc. Creatinine Clearance 0 mL/min (70-130); Calcium 9.5 mg/dL (7.8-10.44); Carbon Dioxide 22 mmol/L (22-29); Chloride 106 mmol/L (98-107); Globulin 3.7 g/dL (2.4-3.5); Glucose 102 mg/dL (70-105); Protein, Total 8.1 g/dL (6.0-8.3); Sodium 137 mmol/L (136-145)
[2021-03-24] MEDS ORDERED: Ondansetron PF 4 MG/2 ML Vial ONE (12:11)
[2021-03-24 12:33] LABS: Bacteria/HPF None Seen HPF (None Seen); Bilirubin Negative (Negative); Blood, Urine Trace (Negative); Clarity Clear (Clear); Glucose, Urine (Dipstick) Normal (Negative); Ketone, Urine Negative (Negative); Leukocyte Negative Leu/uL (Negative); Nitrite Negative (Negative); Protein, Urine (Dipstick) Negative (Neg-Trace); RBC/HPF 0-3 HPF (0-3); Specific Gravity, Urine 1.029 (1.002-1.036); Urobilinogen Normal mg/dL (Less than 2); WBC/HPF 0-3 HPF (0-3)
[2021-03-24 12:35] LABS: Pregnancy Test - Urine (BHCG) Negative (Negative); Pregu Control Background? CLEAR/WHITE (CLR/WHITE); Pregu Control Bar Appear? YES (CONTROL BAR); Specific Gravity 1.029 (1.002-1.036)
== END 2021-03-24 14:24 | disposition home or self-care (01) ==
LOC: ERS 11:14
DX: K43.9 Ventral hernia without obstruction or gangrene (principal)
CPT/HCPCS: 74177; 80053; 81003; 81015; 81025; 85025; 93005; 96374; 96375; J2270; J2405

== ENCOUNTER 2024-11-28 17:35 | Emergency (ER) | payer SELFPAY ==
[~2024-11-28 17:35] MED LIST: Iopamidol-370 76% 500 ML MDV (1 ML CHARGE) ONE
[2024-11-28] MEDS ORDERED: Ondansetron PF 4 MG/2 ML Vial ONE (19:12)
[2024-11-28 19:53] LABS: #Basophils 0.04 10x3/uL (0.0-0.2); #Eosinophils 0.14 10x3/uL (0.0-0.7); #Monocytes 0.58 10x3/uL (0.11-0.59); #Neutrophils 9.06 10x3/uL (1.40-6.50); %Basophils 0.3 % (0.0-1.0); %Eosinophils 1.1 % (0.0-10.0); %Lymphocytes 21.8 % (21.0-51.0); %Monocytes 4.6 % (0.0-10.0); %Neutrophils 71.7 % (42.0-75.0); Hematocrit 39.8 % (36.0-47.0); Hemoglobin 12.4 g/dL (12.0-16.0); Mean Corpuscular Hemoglobin 24.6 pg (27.0-31.0); Mean Corpuscular Volume 78.8 fL (78.0-98.0); Platelet Count 383 10x3/uL (130-400); Red Blood Cell (RBC) Count 5.05 mill/uL (4.20-5.40); White Blood Cell (WBC) Count 12.64 10x3/uL (4.8-10.8)
[2024-11-28 20:15] LABS: BHCG - Serum Negative (NEGATIVE); Pregs Control Background? CLEAR/WHITE (CLR/WHITE); Pregs Control Bar Appear? YES (CONTROL BAR)
[2024-11-28 20:26] LABS: ALT (SGPT) 112 U/L (Less than 34); AST (SGOT) 86 U/L (11-34); Albumin 4.2 g/dL (3.1-4.5); Alkaline Phosphatase 111 U/L (40-110); Anion Gap 17 mmol/L (10-20); BUN (Urea Nitrogen) 13 mg/dL (7.0-18.7); Bilirubin, Total 0.3 mg/dL (0.3-1.2); Calc. Creatinine Clearance 0 mL/min (70-130); Calcium 9.9 mg/dL (7.8-10.44); Carbon Dioxide 23 mmol/L (22-29); Chloride 104 mmol/L (98-107); Globulin 3.7 g/dL (2.4-3.5); Glucose 120 mg/dL (70-105); Lipase 24 U/L (8-78); Potassium 4.6 mmol/L (3.5-5.1); Sodium 139 mmol/L (136-145)
== END 2024-11-28 23:27 | disposition home or self-care (01) ==
LOC: ERS 17:35
DX: K43.9 Ventral hernia without obstruction or gangrene (principal)
CPT/HCPCS: 74177; 80053; 83690; 84703; 85025; 96374; 96375; J2270; J2405; J3010; Q9967

== ENCOUNTER 2025-03-12 15:34 | Observation (INO) | payer SELFPAY ==
[2025-03-12] MEDS ORDERED: HYDROcodone/Acetaminophen 10/325 mg Tablet ONE (16:22)
[2025-03-12] MEDS ORDERED: Ondansetron PF 4 MG/2 ML Vial ONE (17:03)
[2025-03-12 18:17] LABS: Glucose, Urine (Dipstick) Negative (Negative); Leukocyte Negative (Negative); Protein, Urine (Dipstick) Negative (Neg-Trace); Specific Gravity, Urine 1.020 (1.005-1.030)
[2025-03-12 18:23] LABS: Bacteria/HPF None Seen HPF (None Seen); CAUTI Indications for Culture Pelvic or flank pain; RBC/HPF 0-3 HPF (0-3)
[2025-03-12 18:24] LABS: #Basophils Less than 0.03 10x3/uL (0.0-0.2); #Eosinophils 0.14 10x3/uL (0.0-0.7); #Monocytes 0.50 10x3/uL (0.11-0.59); #Neutrophils 9.64 10x3/uL (1.40-6.50); %Basophils 0.2 % (0.0-1.0); %Eosinophils 1.2 % (0.0-10.0); %Lymphocytes 14.8 % (21.0-51.0); %Monocytes 4.1 % (0.0-10.0); %Neutrophils 79.4 % (42.0-75.0); Hematocrit 41.9 % (36.0-47.0); Hemoglobin 12.4 g/dL (12.0-16.0); Mean Corpuscular Hemoglobin 26.5 pg (27.0-31.0); Mean Corpuscular Volume 89.5 fL (78.0-98.0); Platelet Count 176 10x3/uL (130-400); Red Blood Cell (RBC) Count 4.68 mill/uL (4.20-5.40); White Blood Cell (WBC) Count 12.13 10x3/uL (4.8-10.8)
[2025-03-12 18:24] LABS: Urine Culture Reflex No No
[2025-03-12 18:38] LABS: ALT (SGPT) 63 U/L (Less than 34); AST (SGOT) 41 U/L (11-34); Albumin 4.0 g/dL (3.1-4.5); Alkaline Phosphatase 94 U/L (40-110); Anion Gap 17 mmol/L (10-20); BUN (Urea Nitrogen) 9 mg/dL (7.0-18.7); Bilirubin, Total 0.2 mg/dL (0.3-1.2); Calc. Creatinine Clearance 0 mL/min (70-130); Calcium 8.8 mg/dL (7.8-10.44); Carbon Dioxide 17 mmol/L (22-29); Chloride 107 mmol/L (98-107); Globulin 3.5 g/dL (2.4-3.5); Glucose 142 mg/dL (70-105); Lipase 32 U/L (8-78); Potassium 3.8 mmol/L (3.5-5.1); Sodium 137 mmol/L (136-145)
[2025-03-12 18:39] LABS: BHCG - Serum Negative (NEGATIVE); Pregs Control Background? CLEAR/WHITE (CLR/WHITE); Pregs Control Bar Appear? YES (CONTROL BAR)
[2025-03-12] MEDS ORDERED: Ondansetron PF 4 MG/2 ML Vial IVP PRN (20:46)
[2025-03-12] MEDS ORDERED: Glucagon 1 MG/ML KIT IM PRN (20:46)
[2025-03-12] MEDS ORDERED: Dextrose 50% Abboject 50 ML SYRINGE SLOW IVP PRN (20:46)
[2025-03-12 21:48] VITALS: BMI 52.0
[2025-03-12] MEDS: Famotidine/PF 20 mg/2ml Vial SLOW IVP SCH (21:48)
[2025-03-12] MEDS: Acetaminophen 325 MG TAB PO PRN (21:56)
[2025-03-12 22:37] LABS: Magnesium 2.0 mg/dL (1.6-2.6)
[2025-03-12 23:55] VITALS: BP 163/86; TEMP 97.5
[2025-03-13] MEDS: Ketorolac Tromethamine 30 MG (1 mL) VIAL IVP SCH (00:14)
[2025-03-13] MEDS: oxyCODONE 5 MG TAB PO PRN (00:15)
== END 2025-03-13 01:00 | disposition left against medical advice (07) ==
LOC: ERS 15:34 → SURG B 20:50
PROVIDERS: ADMIT Surgery; ATTEND Surgery
DX: K43.6 Other and unspecified ventral hernia with obstruction, without gangrene (principal); E11.9 Type 2 diabetes mellitus without complications; E66.01 Morbid (severe) obesity due to excess calories; Z68.43 Body mass index [BMI] 50.0-59.9, adult; Z98.890 Other specified postprocedural states
CPT/HCPCS: 36415; 74177; 80053; 81001; 83605; 83690; 83735; 84100; 84703; 85025; 96361; 96365; 96374; 96375; 96376; G0378; J1308; J1885; J2270; J2272; J2405; J2543; J3010; J7120; Q9967